=== PATIENT | male | born 1950 | race Caucasian/White ===

== ENCOUNTER 2018-02-26 11:51 | Emergency (ER) | payer BC ==
[2018-02-26] MEDS: IBUPROFEN 600 MG TAB PO (12:46)
[2018-02-26] MEDS: ACETAMINOPHEN 500 MG TAB PO (12:47)
== END 2018-02-26 13:59 | disposition home or self-care (01) ==
LOC: FTE 11:51
DX: M23.92 Unspecified internal derangement of left knee (principal)
CPT/HCPCS: 29505; 73700; 99284-25